=== PATIENT | male | born 1990 | race Caucasian/White ===

== ENCOUNTER 2017-09-26 19:56 | Emergency (ER) | payer OTHER ==
[~2017-09-26] VITALS: Ht 185.4 cm; Wt 125.7 kg
[2017-09-26 20:25] LABS: BASOPHILS # (AUTO) 0.05 x10^3/uL (0-0.1); BASOPHILS % (AUTO) 1 % (0-1); EOSINOPHILS # (AUTO) 0.15 x10^3/uL (0-0.4); EOSINOPHILS % (AUTO) 2 % (1-7); LYMPHOCYTES # (AUTO) 2.12 x10^3/uL (1-3.4); LYMPHOCYTES % (AUTO) 30 % (22-44); MD NO; MEAN CORPUSCULAR HEMOGLOBIN 30.3 pg (27.5-34.5); MEAN CORPUSCULAR HGB CONC 34.1 g/dL (33.2-36.2); MEAN CORPUSCULAR VOLUME 88.8 fL (81-97); MEAN PLATELET VOLUME 8.2 fL (7.4-10.4); MONOCYTES # (AUTO) 0.59 x10^3/uL (0.2-0.8); MONOCYTES % (AUTO) 8 % (2-9); NEUTROPHILS # (AUTO) 4.12 x10^3/uL (1.8-6.8); NEUTROPHILS % (AUTO) 59 % (42-75); PLATELET COUNT 238 x10^3/uL (130-400); RED CELL DISTRIBUTION WIDTH 13.7 % (9.4-14.8)
[2017-09-26 20:34] LABS: AMPHETAMINE SCREEN, URINE Negative (Negative); BARBITURATE SCREEN, URINE Negative (Negative); BENZODIAZEPINE SCREEN, URINE Negative (Negative); CANNABINOID SCREEN, URINE Negative (Negative); COCAINE SCREEN, URINE Negative (Negative); METHADONE SCREEN, URINE Negative (Negative); OPIATE SCREEN, URINE Negative (Negative)
[2017-09-26 20:36] LABS: ALBUMIN 3.9 g/dL (3.4-5.0); ANION GAP 7 mmol/L (5-15); CALCIUM 8.7 mg/dL (8.5-10.1); CHLORIDE 107 mmol/L (98-107); SALICYLATE LEVEL 1.8 mg/dL (2.8-20.0)
[2017-09-26 20:37] LABS: CREATININE 1.03 mg/dL (0.7-1.3)
[2017-09-26 20:38] LABS: ACETAMINOPHEN < 2 mcg/mL (10-30)
[2017-09-26] MEDS ORDERED: NICOTINE 21 MG/24 HR PATCH.TD24 ONE (20:46)
[2017-09-26] MEDS ORDERED: PLEASE ENTER ALLERGIES MC SCH (21:00)
[2017-09-26] MEDS ORDERED: NICOTINE 14MG/24 HR PATCH.TD24 TD ONE (21:00)
[2017-09-27 01:34] VITALS: BP 158/104
== END 2017-09-27 01:34 | disposition home or self-care (01) ==
LOC: ED 23:16
DX: F10.120 Alcohol abuse with intoxication, uncomplicated (principal); R45.851 Suicidal ideations; Y90.9 Presence of alcohol in blood, level not specified
CPT/HCPCS: 36415; 80048; 80307; 80329; 82040; 85025; 99284; G0479; G0480